=== PATIENT | male | born 1995 | race African-American/Black ===

== ENCOUNTER 2016-08-10 13:56 | Emergency (ER) | payer SELFPAY ==
[~2016-08-10] VITALS: Ht 177.8 cm; Wt 74.8 kg
[2016-08-10 14:08] VITALS: BP 145/76
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
== END 2016-08-10 14:32 ==
LOC: ER 13:56
DX: R06.00 Dyspnea, unspecified (principal); T75.1XXA Unspecified effects of drowning and nonfatal submersion, initial encounter; M79.1 Myalgia; F17.210 Nicotine dependence, cigarettes, uncomplicated; Y93.89 Activity, other specified; Y92.89 Other specified places as the place of occurrence of the external cause; Y99.8 Other external cause status
CPT/HCPCS: 99284